=== PATIENT | female | born 1940 | race Caucasian/White ===

== ENCOUNTER 2019-01-14 06:27 | Inpatient (IN) ==
--- NOTE | 2018-12-24 10:57 | Anesthesiology Consultation ---
Date of Service December 24, 2018 Assessment & Plan (1) Encounter for pre-operative examination: Plan: Cardiac clearance 01/05/2019: She is currently stable and asymptomatic from a cardiovascular standpoint with no anginal symptoms occurring greater than 4 ,METS of activity. Her preop EKG showed sinus rhythm is possible anterior infarct. We will therefore obtain an echocardiogram to further evaluate her LV wall motion and systolic function. Pending the results of her echo, patient is at an acceptable risk to proceed with upcoming surgery. ECHO WAS UNREMARKABLE. Chart Review Chart Review: Acceptable Risk for Surgery and Patient seen in Pre Admission Testing Teaching & Discussion Instructed NPO after midnight before surgery, except medications with 15 cc of water. Medication instructions provided according to the PAT guidelines. History Surgery Operation Date: 01/14/19 12:30 Proposed Procedures p Right Total Knee Arthroplasty - Denzel Rosenthal MD Height/Weight Height: 5 ft 5.75 in Weight: 79.7 kg Allergies Allergy/AdvReac Type Severity Reaction Status Date / Time erythromycin base AdvReac Mild stomach Verified 12/20/18 13:42 issues Medications Home Medications Medication Instructions Recorded Confirmed Last Taken Marine Collagen Peptids 1 tab PO QAM 12/20/18 12/20/18 Unknown biotin 10,000 mcg PO QAM 12/20/18 12/20/18 Unknown cholecalciferol (vitamin D3) 2,000 unit PO QAM 12/20/18 12/20/18 Unknown [Vitamin D3] coQ10 (ubiquinol) 200 mg PO QAM 12/20/18 12/20/18 Unknown diclofenac sodium 75 mg PO BID PRN 12/20/18 12/20/18 Unknown diphenhydramine HCl [Allergy] 25 mg PO QAM PRN 12/20/18 12/20/18 Unknown fluticasone 2 spray INTRANASAL QAM 12/20/18 12/20/18 Unknown levothyroxine [Synthroid] 137 mcg PO QAM 12/20/18 12/20/18 Unknown losartan-hydrochlorothiazide 1 tab PO DAILY 12/20/18 12/20/18 Unknown melatonin 2 tab PO HS PRN 12/20/18 12/20/18 Unknown montelukast [Singulair] 10 mg PO QAM 12/20/18 12/20/18 Unknown multivitamin 1 tab PO QAM 12/20/18 12/20/18 Unknown omega 5-xkh-fkb-fish oil [[place]-3] 1 tab PO BID 12/20/18 12/20/18 Unknown potassium chloride 20 meq PO QAM 12/20/18 12/20/18 Unknown vitamin B comp and C no.3 1 cap PO QAM 12/20/18 12/20/18 Unknown fluticasone-salmeterol [Advair 1 inh INHALATION Q12H PRN 12/24/18 12/24/18 Unknown Diskus] Past Medical History Medical History Diabetes diet controlled -- A1C 6.9% Environmental allergies Hypertension Hypothyroid Osteoarthritis Seasonal allergies Past Family History Family History Mother Family history of diabetes mellitus Daughter Family history of diabetes mellitus Grandmother (Maternal) Family history of diabetes mellitus Past Surgical History Surgical History History of back surgery History of left hip replacement Hx of cholecystectomy Hx of total hysterectomy Hx of tubal ligation Past Anesthesia History No Hx of Anesthesia Complications (remote h/o PONV) and No Family Hx of Ane sthesia Complications (daughter PONV) History of PONV Yes (With more remote surgeries--no problems with more recent) Motion Sickness Screening History of Motion Sickness: No Social History Smoking Status: Never smoker Do You Dip or Chew Tobacco: No Hx Alcohol Use: Yes Alcohol type: wine alcohol intake frequency: holidays/special occasions only Hx Substance Use: No Exercise / Class Metabolic Activity II 4-5 Yardwork/Stairs/Walk up hill (Denies CP or SOB with stairs, but slow and limited by knee pain) Review of Systems Pt denies any recent chest pain, shortness of breath, palpitations, cough, fever or URI. Physical Exam Vital Signs BP: 146/81 (pt follows with PCP for HTN) P: 77bpm SPO2: 96% RA T: 97.5 F R: 16 ENMT Mouth: + dentures (full upper), + poor dentition (many teeth "worn down") and + small oral opening Thyromental Distance: < 3.5 Finger Breadths (3) Mallampati Class: II Neck normal visual inspection; neck extension not limited Respiratory normal respiratory effort Auscultation: lungs clear to auscultation bilaterally Cardiovascular Rate/Rhythm: regular rate and regular rhythm Heart Sounds: no murmur Vessels: no carotid bruit Extremities: no edema Testing Electrocardiogram Date: 12/24/18 Findings: + NSR @ (76) Possible anterior infarct, age undetermined. Chest X-Ray Date: 12/24/18 IMPRESSION: No active disease in the chest. Echocardiogram Date: 01/05/19 EF: 60-65% Normal left ventricular size and systolic function. No regional wall motion normalities. Mild concentric LVH. Mild dilated right ventricle with normal systolic function. Sclerotic aortic valve without significant stenosis. Laboratory Results 12/24/18 11:26 12/24/18 11:20 Blood Type B Positive 12/24/18 11:26 Antibody Screen NEGATIVE 12/24/18 11: PT 10.6 Seconds (9.0-12.0) 12/24/18 11:26 INR 1.0 (0.9-1.1) 12/24/18 11: APTT 24.8 Seconds (21.0-31.0) 12/24/18 11:26 Hemoglobin A1c 6.9 % (4.5-5.6) H 12/24/18 11:26
--- NOTE | 2018-12-24 11:00 | PAT Medication Instructions ---
Medication Instructions Date of Service December 24, 2018 Home Medications fluticasone-salmeterol [Advair Diskus] 1 inh INHALATION Q12H PRN Marine Collagen Peptids 1 tab PO QAM biotin 10,000 mcg PO QAM cholecalciferol (vitamin D3) 2,000 unit PO QAM coQ10 (ubiquinol) 200 mg PO QAM diclofenac sodium 75 mg PO BID PRN diphenhydramine HCl [Allergy] 25 mg PO QAM PRN fluticasone 2 spray INTRANASAL QAM levothyroxine [Synthroid] 137 mcg PO QAM losartan-hydrochlorothiazide 1 tab PO DAILY melatonin 2 tab PO HS PRN montelukast [Singulair] 10 mg PO QAM multivitamin 1 tab PO QAM omega 3-xll-swb-fish oil [[place]-3] 1 tab PO BID potassium chloride 20 meq PO QAM vitamin B comp and C no.3 1 cap PO QAM ASK your surgeon for instructions diclofenac sodium 75 mg PO BID PRN STOP taking 2 weeks before surgery Marine Collagen Peptids 1 tab PO QAM coQ10 (ubiquinol) 200 mg PO QAM omega 4-frx-fgz-fish oil [[place]-3] 1 tab PO BID DO NOT take the morning of surgery biotin 10,000 mcg PO QAM cholecalciferol (vitamin D3) 2,000 unit PO QAM diphenhydramine HCl [Allergy] 25 mg PO QAM PRN losartan-hydrochlorothiazide 1 tab PO DAILY montelukast [Singulair] 10 mg PO QAM multivitamin 1 tab PO QAM potassium chloride 20 meq PO QAM vitamin B comp and C no.3 1 cap PO QAM Take morning of surgery With a small sip of water, OTHERWISE NOTHING TO EAT OR DRINK AFTER MIDNIGHT: fluticasone-salmeterol [Advair Diskus] 1 inh INHALATION Q12H PRN (if needed) fluticasone 2 spray INTRANASAL QAM levothyroxine [Synthroid] 137 mcg PO QAM Take evening before surgery fluticasone-salmeterol [Advair Diskus] 1 inh INHALATION Q12H PRN (if needed) melatonin 2 tab PO HS PRN (if needed) Other Notes If you have any questions please call us at [phone] or [phone] or [phone] or [phone]
--- NOTE | 2018-12-24 11:59 | XRay Report ---
XR chest Pre-admission PA/Lat CLINICAL HISTORY: Preoperative chest COMPARISON STUDY: No previous studies for comparison. FINDINGS: The cardiac and mediastinal contours are normal. There is no evidence of focal pulmonary co nsolidation. There is no evidence of failure. No pleural effusions are visualized.[ IMPRESSION: No active disease in the chest. Electronically signed by: Kwaku Ash M.D. 12/24/2018 11:57 AM
[2018-12-24 13:20] LABS: Basophils # (auto) 0.04 K/uL (0-0.2); Basophils % (auto) 0.4 %; Eosinophils # (auto) 0.17 K/uL (0-0.5); Eosinophils % (auto) 1.8 %; Hematocrit (blood only) 40.9 % (37-47); Hemoglobin 13.7 g/dL (12.0-16.0); Immature Granulocytes # (auto) 0.02 K/uL (0.00-0.02); Immature Granulocytes % (auto) 0.2 %; Lymphocytes # (auto) 2.79 K/uL (1.2-3.4); Lymphocytes % (auto) 30.2 %; Mean Corpuscular Hgb Conc 33.5 g/dL (32-36); Mean Corpuscular Volume 92.5 fL (80-100); Mean Platelet Volume 10.7 fL (7.4-10.4); Monocytes # (auto) 0.95 K/uL (0.11-0.59); Monocytes % (auto) 10.3 %; Neutrophils # (auto) 5.28 K/uL (1.4-6.5); Neutrophils % (auto) 57.1 %; Platelet Count 250 K/uL (130-400); RDW Standard Deviation 43.8 fL (36.4-46.3); Red Blood Count 4.42 M/uL (4.2-5.4); White Blood Count 9.25 K/uL (4.8-10.8)
[2018-12-24 13:26] LABS: Estimated Average Glucose 151 mg/dl; Hemoglobin A1C 6.9 % (4.5-5.6)
[2018-12-24 13:32] LABS: Calcium 9.2 mg/dl (8.5-10.1); Creatinine Clr Calc Pharmacy 58.2 ml/min; Est GFR (African American) 77.7; Est GFR (Non-African American) 67.1; Potassium 3.7 mmol/L (3.5-5.1)
[2018-12-24 13:44] LABS: Partial Thromboplastin Ratio 0.9; Partial Thromboplastin Time 24.8 Seconds (21.0-31.0); Prothrombin Time 10.6 Seconds (9.0-12.0)
--- NOTE | 2018-12-27 18:53 | History and Physical Report ---
DATE OF ADMISSION: 01/14/2019 CHIEF COMPLAINT: Bilateral knee pain and discomfort, right side a bit worse than the left. HISTORY OF PRESENT ILLNESS: The patient is a 78-year-old female from [place] who presents for treatment of her knees. She has got a long history of bilateral knee pain and discomfort that has gotten worse, particularly over the past year. Right-side is a little bit more bothersome than the left. She has been through extensive conservative treatment including steroid shots as well as viscosupplementation, which have become less successful over time. She has been through a course of therapy, which did not help at all. She has tried bracing. She actually had PRP injection, which helped just a little bit. She now would like to proceed with definitive treatment. She lives by herself and having more difficulty doing this. She has nighttime pain. She has pain with every step. PAST MEDICAL HISTORY: 1. Significant for diabetes with an A1c of 6.9. 2. Hypothyroidism. 3. Hypertension. 4. Lumbar spondylosis. 5. Obesity with a BMI of 30. PAST SURGICAL HISTORY: 1. Left hip replacement done by Dr. Hollins at [place]. 2. Spine surgery. 3. Hysterectomy. 4. Cholecystectomy. 5. Tubal ligation. ALLERGIES: None. CURRENT MEDICINES: 1. Losartan/hydrochlorothiazide 75/200 in the morning. 2. Synthroid 37 mcg a day. 3. Potassium. 4. Fluticasone nasal spray. 5. Singulair 10 mg. 6. Diclofenac 75 mg twice a day. 7. Vicodin. 8. Coenzyme Q. 9. [place] 3. 10. Vitamin D3. 11. Magnesium. SOCIAL HISTORY: A 78-year-old female. She is . Lives by herself. Five children. Does not smoke. FAMILY HISTORY: Significant for diabetes. REVIEW OF SYSTEMS: Significant for prediabetes/diabetes. Her hemoglobin A1c is 6.9. Denies any current chest pain or shortness of breath. No history of DVT or PE. No known bleeding problems. PHYSICAL EXAMINATION: GENERAL: Physical examination shows a pleasant elderly female. Looks to be in reasonably good health. HEENT: Benign. NECK: Supple. No lymphadenopathy. LUNGS: Clear to auscultation. HEART: Regular rate and rhythm. ABDOMEN: Soft, nontender, nondistended. EXTREMITIES: Grossly neurovascularly intact except as follows: Examination of both knees shows patient walks with a bit of a shuffling waddling gait. Walks with like both knees are a bit stiff. The right knee reveals a bony hypertrophy medially. Range of motion is about 15 degrees show full extension, 110 degrees of flexion. Moderate-sized knee effusion. No pain with hip motion. She is neurologically intact. Examination of left knee reveals varus deformity. Range of motion is 5-125. She is tender over the medial joint line. Small knee effusion. No pain with hip motion. X-RAYS: X-rays of both knees were reviewed. Shows advanced bilateral knee DJD. She has got complete loss of her joint space, particularly in the medial side. She has subchondral sclerosis. She has got osteophytes mostly in the medial compartment, but some lateral and patellofemoral osteophytes as well. ASSESSMENT: A 78-year-old white female with advanced bilateral knee degenerative joint disease. No response to conservative treatment. She would like to proceed with definitive treatment. The right knee has been bothering a little bit longer than the left. PLAN: We will take her to the operating room and do right total knee replacement. The risks and benefits of this procedure were explained to the patient including but not limited to DVT, PE, , infection, neurological injury, vascular injury, bleeding problem, pain, limited range of motion, stiffness, failure to relieve symptoms, incomplete relief of symptoms, need for further surgery in future, fracture, leg length inequality, nerve palsy, etc. The patient understands and desires to proceed. Informed consent was obtained. She does live by herself and she is hoping to go to rehab or long term facility postoperatively. She will need to hold her diclofenac 2 weeks preop. KELSID
[~2019-01-14 06:27] MED LIST: ACETAMINOPHEN 500 MG TAB PO SCH; BUPIVACAINE LIPOSOME/PF 266 MG, BUPIVACAINE/EPINEPHRINE 50 ML, SODIUM CHLORIDE 0.9% 30 ... INFIL SCH; CEFAZOLIN 2000MG 2,000 MG/15 ML SYR IV SCH; FAMOTIDINE 20 MG TAB PO SCH; GABAPENTIN 300 MG PO SCH; LR 500ML BOLUS, THEN 15ML/HR IV SCH; LR 60ML/HR IV SCH; METOCLOPRAMIDE HCL 10 MG TABLET PO SCH
[2019-01-14] MEDS ORDERED: ROPIVACAINE 0.5% 5 MG/ML 30 ML VIAL ONE (06:30)
[2019-01-14] MEDS ORDERED: TRANEXAMIC ACID 1,000 MG **IV Intra-op IV SCH (06:30)
[2019-01-14] MEDS ORDERED: BUPIVACAINE 0.5 % 5 MG/1 ML PF 10ML VIAL ONE (06:30)
[2019-01-14] MEDS ORDERED: EPINEPHrine INJ 1 MG/ML AMP ONE ×2 (06:30→08:36)
--- NOTE | 2019-01-14 06:53 | History & Physical Bridge Note ---
Date of Service January 14, 2019 History & Physical Bridge Note I have examined the patient, reviewed the History & Physical and in the interval since the performance of the History & Physical I have noted the following changes of clinical significance: no changes noted
[2019-01-14] MEDS ORDERED: fentaNYL citrate 100 MCG/2 ML VIAL ONE (07:25)
[2019-01-14] MEDS ORDERED: MIDAZOLAM HCL 1 MG/ML 2ML VIAL ONE ×2 (07:25→08:20)
[2019-01-14] MEDS ORDERED: LIDOCAINE HCL 2% 2 ML VIAL/AMP(20MG/ML) INFIL ONE (07:25)
[2019-01-14] MEDS ORDERED: PROPOFOL IV EMULSION 10 MG/ML 20 ML VIAL IV ONE ×2 (07:25→10:08)
[2019-01-14] MEDS ORDERED: LABETALOL HCL IV 5 MG/ML 20ML IV PRN (08:21)
[2019-01-14] MEDS ORDERED: fentaNYL citrate 100 MCG/2 ML VIAL IV PRN (08:21)
[2019-01-14] MEDS ORDERED: ATROPINE SULFATE 0.1 MG/ML 10ML SYR IV PRN (08:21)
[2019-01-14] MEDS ORDERED: ONDANSETRON INJ 2 MG/ML 2 ML VIAL IV PRN ×2 (08:21→13:15)
[2019-01-14] MEDS ORDERED: ePHEDrine sulfate 50 MG/ML AMP IV PRN (08:21)
[2019-01-14] MEDS ORDERED: PHENYLEPHRINE 100MCG/ML 5ML SYR IV PRN (08:21)
[2019-01-14] MEDS ORDERED: HYDROmorphone INJ 1 MG/ML SYRINGE IV PRN (08:21)
[2019-01-14] MEDS ORDERED: SODIUM CHLORIDE 0.9% PF 50 ML VIAL ONE (08:34)
[2019-01-14] MEDS ORDERED: BACITRACIN INJ 50,000 UNIT VIAL ONE (08:35)
[2019-01-14] MEDS ORDERED: BUPIVACAINE 0.25% 30 ML VIAL ONE (08:35)
[2019-01-14] MEDS ORDERED: BUPIVACAINE LIPOSOME 1.3% 266 MG/20 ML VIAL ONE (08:35)
[2019-01-14] MEDS ORDERED: PHENYLEPHRINE 100MCG/ML 5ML SYR ONE (09:05)
--- NOTE | 2019-01-14 10:27 | Post Operative Brief Note ---
Immediate Post Op Note v1 Date of Surgery January 14, 2019 Pre & Post Diagnosis Operation Date: 01/14/19 08:50 Pre-Op Diagnosis: Right Knee Advanced Degenerative Joint Disease Post-Op Diagnosis: Right Knee Advanced Degenerative Joint Disease Procedure Operation Date: 01/14/19 08:50 Actual Procedures p Right Total Knee Arthroplasty(Right) - Denzel Rosenthal MD Surgeon Denzel Rosenthal MD Underwriting Support Manager Lana, PAC Estimated Blood Loss 50 Findings Consistent with Post-Op Diagnosis Fluids 1300 cc Specimens Right Knee Drains Small Catheter (A 16 Indian small catheter was inserted by NOÉ nKox, without difficulty, clear yellow urine obtained, output to be monitored by Anestheisa.) Anesthesia Type Spinal MAC Complications none Disposition Accompanied Patient To Recovery: No Disposition: Recovery Room
--- NOTE | 2019-01-14 11:42 | XRay Report ---
XR knee RT 2V routine CLINICAL HISTORY: Surgical Post Op COMPARISON: Right knee radiographs December 26, 2018. FINDINGS: Alignment of the right knee arthroplasty is anatomic. There is no fracture or unexpected r adiopaque foreign body. There are skin red. IMPRESSION: Expected findings following total right knee arthroplasty. Electronically signed by: Tank Bowling M.D. 01/14/2019 11:41 AM
--- NOTE | 2019-01-14 12:51 | Anesthesiology Progress Note ---
Date of Service January 14, 2019 Anesthesia Post Procedure Vital Signs Vital Signs: Temp Pulse Pulse Resp BP Pulse Ox 01/14/19 12:35 63 13 137/58 L 99 01/14/19 12:20 59 L 11 L 126/53 L 97 01/14/19 12:10 59 L 11 L 117/76 98 01/14/19 12:00 71 16 131/58 L 98 01/14/19 11:50 73 17 135/63 98 01/14/19 11:40 66 14 135/52 L 97 01/14/19 11:30 69 15 126/57 L 97 01/14/19 11:20 69 13 125/55 L 98 01/14/19 11:10 72 16 132/56 L 97 01/14/19 11:00 76 26 H 130/55 L 97 01/14/19 10:50 76 14 131/65 98 01/14/19 10:40 36.3 C L 70 12 135/55 L 98 01/14/19 10:31 37.1 C 73 17 141/61 H 96 01/14/19 06:35 36.8 C 68 18 167/78 H 96 Pain Intensity Right Knee: Pain Intensity: 0 Notes Mental Status: alert / awake / arousable Patient Amnestic to Procedure: Yes Nausea / Vomiting: adequately controlled Pain: adequately controlled Airway Patency, RR, SpO2: stable & adequate BP & HR: stable & adequate Hydration State: stable & adequate Neuraxial Anesthesia: was administered and sensory block is resolving Anesthetic Complications: no major complications apparent and Pt Satisfied with anesthetic care
[2019-01-14] MEDS ORDERED: MAGNESIUM HYDROXIDE SUSP 30 ML UDC PO PRN (13:15)
[2019-01-14] MEDS ORDERED: FLUTICASONE/SALMETEROL 250/50 (ADVAIR) 14 PUFF/1 INHALER INH PRN (13:15)
[2019-01-14] MEDS ORDERED: NALOXONE HCL 0.4 MG/1 ML VIAL/CARP IV PRN (13:15)
[2019-01-14] MEDS ORDERED: DEXTROSE 50% 50 ML SYRINGE IV PRN (13:15)
[2019-01-14] MEDS ORDERED: ALUMINUM/MAGNESIUM SUSP 30 ML UDC PO PRN (13:15)
[2019-01-14] MEDS ORDERED: GLUCAGON FOR INJ 1 MG VIAL SQ PRN (13:15)
[2019-01-14] MEDS ORDERED: PHARMACY GLYCEMIC MGMT CONSULT STA (13:15)
[2019-01-14] MEDS ORDERED: HYDROmorphone INJ 0.5 MG/0.5 ML SYR IV PRN (13:15)
[2019-01-14] MEDS ORDERED: METOCLOPRAMIDE HCL INJ 5 MG/ML 2 ML VIAL IV PRN (13:15)
[2019-01-14] MEDS ORDERED: NON-FORMULARY MEDICATION (Melatonin 2 TAB) PO PRN (13:15)
[2019-01-14] MEDS ORDERED: BISACODYL 10 MG SUPP PR PRN (13:15)
[2019-01-14] MEDS ORDERED: GLUCOSE 10 TABS/TUBE PO PRN (13:15)
[2019-01-14] MEDS ORDERED: GLUCOSE 40% GEL 15 GM TUBE PO PRN (13:15)
[2019-01-14] MEDS ORDERED: CARBOHYDRATES FOR HYPOGLYCEMIA PO PRN (13:15)
--- NOTE | 2019-01-14 13:49 | Operative Report ---
DATE OF OPERATION: 01/14/2019 SURGEON: Denzel Rosenthal MD BROOMCORN SEEDER: NOÉ Smith PREOPERATIVE DIAGNOSIS: Right knee degenerative joint disease. POSTOPERATIVE DIAGNOSIS: Right knee degenerative joint disease. PROCEDURE PERFORMED: Right cemented posterior stabilized total knee arthroplasty. COMPLICATIONS: None. ESTIMATED BLOOD LOSS: 50 mL. FLUID REPLACEMENT: 1300 mL crystalloid fluid replacement. TOURNIQUET TIME: 56 minutes at 300 mmHg. ANESTHESIA: Spinal with adductor canal block. DRAINS: None. SPECIMENS: Right knee sent for pathology. OPERATIVE INDICATIONS: The patient is a 78-year-old fairly active, independent female who has had a long history of bilateral knee pain and discomfort, right side a bit worse than the left. She has been through extensive conservative treatment, which just became less successful over time. She had significant flexion contracture of her both knees. She would like to proceed with right total knee arthroplasty. OPERATIVE FINDINGS: Operative findings revealed extensive right knee DJD with grade 4 changes in all 3 compartments, most severe in the medial and patellofemoral compartments. She had a moderate size joint effusion. She had a 15-20 degree flexion contracture. She had a significant chondrocalcinosis throughout. OPERATIVE IMPLANTS: Operative implants consisted of: 1. A Biomet Vanguard size 65 right posterior stabilized femoral component. 2. A Biomet size 67 tibial tray. 3. A 10 mm posterior stabilized polyethylene insert. 4. A 31 x 8 all poly patella. OPERATIVE PROCEDURE: The patient was taken to the operating room, identified and placed on the operating table in supine position. All contact areas were appropriately padded. IV antibiotics were provided by the anesthesia team. A spinal anesthetic and adductor canal block had been provided in the holding area. Clayton catheter was placed in sterile fashion. Right thigh tourniquet was then placed and the right lower extremity was then prepped and draped in usual sterile fashion. The right leg was elevated and exsanguinated with Esmarch and tourniquet was placed at 300 mmHg. An anterior approach of the right knee was then performed through a longitudinal incision centered over the patella. Sharp dissection was carried through the subcutaneous tissue down to the level of the extensor mechanism. A medial parapatellar arthrotomy incision was made. Some subperiosteal dissection was carried out medially. The fat pad resected from beneath the patellar tendon. The lateral patellofemoral ligament was released. The patella was everted and knee was flexed. The osteophytes were taken off the distal femur. The ACL and PCL were then released from the distal femur and the tibia subluxated anteriorly. I did pretty extensive posterior medial release due to the flexion contracture. The external tibial alignment jig was then placed in the anterior face of the tibia and adjusted 14 mm medially. Proximal tibial cut was made to remove about 2 mm of bone from the most deficient aspect of the medial tibial plateau. Some osteophytes were taken off medial and posteromedially. Tibia was sized to a size 67. Attention was then drawn to the femur. The distal femur was entered with a sharp drill bit. Intramedullary canal was suctioned. A right 5-degree valgus cutting guide was placed. Distal femoral cutting block was pinned in place. Distal femoral cut was made to take an additional 3 mm of bone off distal femur. The femur was then sized to a size 65. The AP cutting block was pinned parallel to the epicondylar axis, which was 3 degrees of external rotation. The anterior cut, anterior chamfer, posterior cut, posterior chamfer cuts were made. Box cutting guide was placed and adjusted slightly lateral and the box cut was made. The knee was flexed. The remnants of the medial and lateral menisci were excised. The osteophytes were taken off the posterior aspect of the femur. A trial femoral component was placed. Tibial tray was pinned in maximum external rotation, and drill and stem punch were used to create defect in the proximal tibia for the tibial tray. The knee was then trialed and the 10 mm insert fit most appropriately. Attention was then drawn to the patella. The patella was cleaned of all soft tissues. Patella thickness measured 21 mm in thickness, it was cut down to 13. It was sized to a size 31 patella. Lug holes were drilled for 31 patella. Lateral osteophyte was removed. Patella button was placed. Knee was taken through range of motion and patella tracked nicely with no thumbs test. Attention was then drawn toward placing the permanent components. All trial components were removed. A bone plug was placed in the distal femur to limit blood loss. A double batch of Palacos G cement was mixed. A Biomet Vanguard size 65 right posterior stabilized femoral component, size 67 tibial tray, a 10 mm posterior stabilized polyethylene insert, and a 31 x 8 all poly patella were then cemented in place. Knee was brought down to full extension until cement hardened. A final cement check was then performed. Pericapsular tissues were injected with a total of 100 mL of a combination of 20 mL Exparel, 30 mL of normal saline, 50 mL of 0.25% Marcaine with epinephrine. The patient did receive 1 gram of tranexamic acid. The tourniquet was then let down for final tourniquet time of 56 minutes. Hemostasis was assured with use of electrocautery. The extensor mechanism was then closed with combination of #1 PDS suture and #1 Vicryl suture in [id number] fashion. Extensor mechanism was checked and found to be intact. Subcutaneous tissues were then closed with 2 Dexon suture in a buried interrupted fashion. Skin was closed with skin red. Leg was then cleaned, dried and a sterile dressing of Xeroform, 4 x 4's, sterile cast padding and Zhen bandage were applied. The patient then transferred to the recovery room in stable condition. The patient tolerated the procedure well with no complications. All needle and sponge counts were correct at the end of the operation. I attest to the content of the Intraoperative Record and any orders documented therein. Any exception s are noted below.
[2019-01-14] MEDS ORDERED: PHARMACY GLYCEMIC MGMT CONSULT PRN (14:30)
[2019-01-14] MEDS: SODIUM CHLORIDE 0.9% 1000ML 1,000 ML IV SCH ×2 (14:58→22:51)
[2019-01-14] MEDS: TRAMADOL HCL 50 MG TABLET PO PRN ×2 (15:01→21:18)
--- NOTE | 2019-01-14 15:32 | Progress Note ---
DATE: 01/14/2019 SUBJECTIVE: A 78-year-old white female postop from a right knee replacement. She is doing pretty well. Just starting to get some pain in her knee. No chest pain or shortness of breath. Not feeling dizzy or lightheaded. OBJECTIVE: VITAL SIGNS: Temperature 36.4. Vital signs stable. GENERAL: Physical examination reveals a pleasant elderly female. She is sitting up in her bed, reading and looks pretty comfortable. LUNGS: Clear to auscultation. HEART: Regular rate and rhythm. ABDOMEN: Soft, nontender, nondistended. EXTREMITIES: Grossly neurovascularly intact except as follows: Examination of the right leg reveals the leg to be well aligned. Dressing is clean, dry and intact. She can dorsiflex and plantarflex her foot appropriately. She is neurologically intact. X-RAYS: X-rays of the right knee from recovery room were reviewed. It shows a right cemented posterior stabilized total knee arthroplasty. Components looked to be in good position. No signs of problems. ASSESSMENT: A 78-year-old white female postop from a right knee replacement, doing well. Pain is controlled. She is neurologically intact. PLAN: 1. DVT prophylaxis including thigh-high TEDs, SCDs, and aspirin twice a day. 2. PT/OT. Weight bear as tolerated. Right total knee protocol. 3. Pain control, doing pretty well with current pain regimen. 4. IV antibiotics x24 hours. 5. Disposition: She is hoping to be discharged to a rehab or senior care facility as she lives by herself and she will need some assistance for a while. We will get manager social responsibility working on this in the morning.
[2019-01-14] MEDS: ACETAMINOPHEN 500 MG TAB PO SCH ×2 (15:33→21:18)
[2019-01-14] MEDS: KETOROLAC TROMETHAMINE 15 MG/ML VIAL IV SCH ×2 (15:37→21:17)
--- NOTE | 2019-01-14 15:37 | Pharmacy Report ---
Glycemic Control Consultation - Date of Service January 14, 2019 - Scope Scope: Glycemic Pharmacist consulted by Dr [] on [date] for glycemic control and to write orders per [facility] inpatient glycemic control protocol - Objective Weight: 80.6 kg Accuchecks BSG (last 24hrs): 01/14/19 01/14/19 01/14/19 06:54 10:35 13:06 POC Glucose 152 H 151 H 151 H HbA1c: Hemoglobin A1c 6.9 % (4.5-5.6) H 12/24/18 11:26 - Recent Pertinent Medications Outpatient Anti-diabetic Regimen: * N/A Risk Factors for Insulin Resistance: * Recent Surgery * Diet - Assessment & Plan Assessment & Plan: ASSESSMENT: * 78yo female with A1c diagnostic for diabetes (A1c > 6.5%) s/p R total knee replacement * Pt does not take any medications to control her blood sugar as an outpatient (diet controlled?) * Will initiate weight based, low dose SQ basal bolus insulin regimen for post-op hyperglycemia and titrate based on BSG trends * Goal is to maintain BSG <200 mg/dl (ideally <150 mg/dl) to prevent post-op infectious complications PLAN FOR INPATIENT GLYCEMIC CONTROL: * Basal insulin * Lantus 15 units (0.2 units/kg) SQ Q24hrs * Bolus insulin * NovoLog per scale ACHS or Q6hrs while NPO * Goal Range: Low 110 mg/dL - High 140 mg/dL * Correction Factor: 40 mg/dL/unit * Nutritional / Prandial insulin per carb ratio of 1 unit per 13 grams CHO consumed * Please note that the plan above was derived based on current level of insulin resistance and hospital stress. These recommendations are appropriate for inpatient admission only. Plan of care upon discharge will need to be reassessed to avoid potential outpatient hypo/hyperglycemia. Thank you.
[2019-01-14] MEDS ORDERED: TRANEXAMIC ACID 1,000 MG in 0.9 % SODIUM CHLORIDE 100 ML IV SCH (16:30)
[2019-01-14] MEDS: INSULIN GLARGINE SOLOSTAR 100 UNITS/ML 3 ML PEN SC SCH (17:02)
[2019-01-14] MEDS: CEFAZOLIN 2000MG 2,000 MG/15 ML SYR IV SCH (18:54)
[2019-01-14] MEDS: FERROUS GLUCONATE 324 MG TAB PO SCH (18:55)
[2019-01-14] MEDS: INSULIN ASPART 100 UNITS/ML 3 ML PEN SC SCH ×2 (18:55→21:24)
[2019-01-14] MEDS: ASCORBIC ACID 500 MG TAB PO SCH (18:55)
[2019-01-14] MEDS: DOCUSATE SODIUM 100 MG CAP PO SCH (21:15)
[2019-01-14] MEDS: OMEGA-3 (PURIFIED FISH OIL) 1 GM CAP PO SCH (21:16)
[2019-01-14] MEDS: ASPIRIN 81 MG ECTAB PO SCH (21:16)
[2019-01-14] MEDS: SENNA 8.6 MG TAB PO SCH (21:16)
[2019-01-15] MEDS: CEFAZOLIN 2000MG 2,000 MG/15 ML SYR IV SCH (01:08)
[2019-01-15] MEDS: KETOROLAC TROMETHAMINE 15 MG/ML VIAL IV SCH ×4 (04:11→21:21)
[2019-01-15] MEDS: TRAMADOL HCL 50 MG TABLET PO PRN ×5 (04:12→23:27)
[2019-01-15] MEDS: ACETAMINOPHEN 500 MG TAB PO SCH ×3 (06:03→21:21)
[2019-01-15] MEDS: LEVOTHYROXINE SODIUM 137 MCG TABLET PO SCH (06:03)
[2019-01-15 06:34] LABS: Hematocrit (blood only) 32.5 % (37-47); Hemoglobin 10.9 g/dL (12.0-16.0); Mean Corpuscular Hgb Conc 33.5 g/dL (32-36); Mean Corpuscular Volume 91.3 fL (80-100); Mean Platelet Volume 10.1 fL (7.4-10.4); Platelet Count 168 K/uL (130-400); RDW Coefficient of Variation 13.1 % (11.5-14.5); RDW Standard Deviation 43.6 fL (36.4-46.3); Red Blood Count 3.56 M/uL (4.2-5.4); White Blood Count 6.72 K/uL (4.8-10.8)
[2019-01-15 06:56] LABS: BUN Creatinine Ratio 15.2 (10-20); Calcium 7.9 mg/dl (8.5-10.1); Creatinine Clr Calc Pharmacy 48.3 ml/min; Potassium 3.1 mmol/L (3.5-5.1)
[2019-01-15] MEDS ORDERED: POTASSIUM CHLORIDE 10 MEQ TABCR PO ONE ×2 (07:23→18:24)
--- NOTE | 2019-01-15 08:26 | Progress Note ---
DATE: 01/15/2019 SUBJECTIVE: A 78-year-old white female postop day 1 from a right knee replacement. She is doing pretty well. Did not have a real great night sleep, but the pain has been reasonably well controlled and responded to the pain medicine. No chest pain or shortness of breath. Not feeling dizzy or lightheaded. OBJECTIVE: VITAL SIGNS: Temperature 36.6. Vital signs stable. GENERAL: Physical examination reveals a pleasant elderly female. I awake her this morning. EXTREMITIES: Examination of the right leg reveals the leg to be well aligned. Dressing is clean, dry and intact. She can dorsiflex and plantarflex her foot appropriately. She is neurologically intact. LABORATORY DATA: Hemoglobin is 10.9. Hematocrit 32.5. Electrolytes reveal a potassium of 3.1. ASSESSMENT: A 78-year-old white female postop day 1 from right knee replacement, doing pretty well. Pain has been reasonably well controlled. She is hypokalemic and we will supplement her potassium. PLAN: 1. DVT prophylaxis including thigh-high TEDs, SCDs, and aspirin twice a day. 2. PT/OT. Weight bear as tolerated. Right total knee protocol. 3. Pain control, doing pretty well with current pain regimen. 4. Hypokalemia. We will supplement her potassium today. 5. Anemia. Currently asymptomatic. Continue iron supplementation. 6. Disposition: She is hoping to be discharged to rehab or prison facility as she lives by herself and she will need some assistance for a while.
[2019-01-15] MEDS ORDERED: MULTIVITAMIN TAB PO SCH (09:00)
[2019-01-15] MEDS ORDERED: NON-FORMULARY MEDICATION (Coq10 (Ubiquinol) 200 MG) PO SCH (09:00)
[2019-01-15] MEDS ORDERED: NON-FORMULARY MEDICATION (Biotin 10,000 MCG) PO SCH (09:00)
[2019-01-15] MEDS ORDERED: [UNRECOGNIZED DRUG - REMARK] PO SCH (09:00)
[2019-01-15] MEDS: ASCORBIC ACID 500 MG TAB PO SCH ×2 (09:05→18:11)
[2019-01-15] MEDS: OMEGA-3 (PURIFIED FISH OIL) 1 GM CAP PO SCH ×2 (09:05→21:21)
[2019-01-15] MEDS: DOCUSATE SODIUM 100 MG CAP PO SCH ×2 (09:05→21:21)
[2019-01-15] MEDS: VITAMIN B COMPLEX TAB PO SCH (09:05)
[2019-01-15] MEDS: FERROUS GLUCONATE 324 MG TAB PO SCH ×2 (09:05→18:11)
[2019-01-15] MEDS: MULTIVITAMIN TAB PO SCH (09:05)
[2019-01-15] MEDS: MONTELUKAST SODIUM 10 MG TABLET PO SCH (09:05)
[2019-01-15] MEDS: LOSARTAN/HCTZ 50/12.5MG TAB PO SCH (09:06)
[2019-01-15] MEDS: ASPIRIN 81 MG ECTAB PO SCH ×2 (09:06→21:21)
[2019-01-15] MEDS: CHOLECALCIFEROL 1,000 UNITS TAB PO SCH (09:06)
[2019-01-15] MEDS: POTASSIUM CHLORIDE 20 MEQ TABCR PO SCH (09:06)
[2019-01-15] MEDS: FLUTICASONE PROPIONATE NA SPR 16 GM BTL NAE SCH (09:06)
[2019-01-15] MEDS: INSULIN ASPART 100 UNITS/ML 3 ML PEN SC SCH ×4 (09:11→21:31)
--- NOTE | 2019-01-15 11:00 | Anesthesiology Progress Note ---
Date of Service January 15, 2019 Anesthesia Post Procedure Vital Signs Vital Signs: Temp Pulse Pulse Pulse Resp BP Pulse Ox 01/15/19 08:24 36.7 C 62 16 134/74 96 01/15/19 03:24 36.6 C 63 16 134/50 L 93 01/14/19 22:49 36.7 C 58 L 16 159/70 H 96 01/14/19 19:24 36.5 C 62 18 183/69 H 94 01/14/19 16:00 36.4 C L 56 L 18 183/77 H 96 01/14/19 15:10 36.4 C L 62 18 154/73 H 96 01/14/19 14:06 36.4 C L 61 18 145/70 H 96 01/14/19 13:30 36.7 C 61 14 135/69 98 01/14/19 13:00 36.7 C 62 16 121/56 L 98 01/14/19 12:45 36.6 C 58 L 14 126/56 L 97 01/14/19 12:35 63 13 137/58 L 99 01/14/19 12:20 59 L 11 L 126/53 L 97 01/14/19 12:10 59 L 11 L 117/76 98 01/14/19 12:00 71 16 131/58 L 98 01/14/19 11:50 73 17 135/63 98 01/14/19 11:40 66 14 135/52 L 97 01/14/19 11:30 69 15 126/57 L 97 01/14/19 11:20 69 13 125/55 L 98 01/14/19 11:10 72 16 132/56 L 97 Pain Intensity Right Knee: Pain Intensity: 3 Notes Mental Status: alert / awake / arousable Nausea / Vomiting: adequately controlled Pain: adequately controlled Airway Patency, RR, SpO2: stable & adequate BP & HR: stable & adequate Hydration State: stable & adequate Neuraxial Anesthesia: was administered and sensory block resolved Anesthetic Complications: no major complications apparent and Pt Satisfied with anesthetic care
[2019-01-15] MEDS: INSULIN GLARGINE SOLOSTAR 100 UNITS/ML 3 ML PEN SC SCH (17:15)
[2019-01-15] MEDS: SENNA 8.6 MG TAB PO SCH (21:21)
[2019-01-16] MEDS: KETOROLAC TROMETHAMINE 15 MG/ML VIAL IV SCH ×2 (03:37→10:53)
[2019-01-16] MEDS: LEVOTHYROXINE SODIUM 137 MCG TABLET PO SCH (06:01)
[2019-01-16] MEDS: ACETAMINOPHEN 500 MG TAB PO SCH ×3 (06:02→21:47)
[2019-01-16] MEDS: TRAMADOL HCL 50 MG TABLET PO PRN ×3 (06:04→20:40)
[2019-01-16] MEDS: DOCUSATE SODIUM 100 MG CAP PO SCH ×2 (07:54→20:41)
[2019-01-16] MEDS: CHOLECALCIFEROL 1,000 UNITS TAB PO SCH (07:54)
[2019-01-16] MEDS: LOSARTAN/HCTZ 50/12.5MG TAB PO SCH (07:55)
[2019-01-16] MEDS: OMEGA-3 (PURIFIED FISH OIL) 1 GM CAP PO SCH ×2 (07:55→20:39)
[2019-01-16] MEDS: ASPIRIN 81 MG ECTAB PO SCH ×2 (07:55→20:40)
[2019-01-16] MEDS: VITAMIN B COMPLEX TAB PO SCH (07:55)
[2019-01-16] MEDS: POTASSIUM CHLORIDE 20 MEQ TABCR PO SCH (07:55)
[2019-01-16] MEDS: ASCORBIC ACID 500 MG TAB PO SCH ×2 (07:56→18:10)
[2019-01-16] MEDS: MONTELUKAST SODIUM 10 MG TABLET PO SCH (07:56)
[2019-01-16] MEDS: FLUTICASONE PROPIONATE NA SPR 16 GM BTL NAE SCH (07:56)
[2019-01-16] MEDS: FERROUS GLUCONATE 324 MG TAB PO SCH ×2 (07:56→18:10)
[2019-01-16] MEDS: INSULIN ASPART 100 UNITS/ML 3 ML PEN SC SCH ×4 (07:56→20:42)
[2019-01-16] MEDS: MULTIVITAMIN TAB PO SCH (07:56)
--- NOTE | 2019-01-16 08:42 | Progress Note ---
DATE: 01/16/2019 SUBJECTIVE: A 78-year-old white female postop day 2 from right knee replacement. She is doing well. Says her knee just feels pretty sore. No chest pain or shortness of breath. Not feeling dizzy or lightheaded. OBJECTIVE: VITAL SIGNS: Temperature 36.5. Vital signs stable. GENERAL: Physical examination reveals a pleasant elderly female. She is sitting up at her bedside, eating her breakfast and looks comfortable. EXTREMITIES: Examination of the right leg reveals the dressing to be clean, dry and intact. She can dorsiflex and plantarflex her foot appropriately. She is neurologically intact. LABORATORY DATA: Potassium improved at 3.6 and now normal. ASSESSMENT: A 78-year-old white female postop day 2 from right knee replacement, doing well. Pain is reasonably well controlled. Her potassium is improved. PLAN: 1. DVT prophylaxis including thigh-high TEDs, SCDs, and aspirin twice a day. 2. PT/OT. Weight bear as tolerated. Right total knee protocol. 3. Pain control, doing pretty well with current pain regimen. 4. Disposition: She is hoping to be discharged to rehab. I believe they are looking in the [facility] facility. She needs a 3-day hospital stay and hopefully they get her there on Thursday.
--- NOTE | 2019-01-16 14:18 | Pharmacy Report ---
Pharmacy Glycemic Short Note 2 - Date of Service January 16, 2019 - Glycemic Short BSG Results (Last 24 hours): 01/15/19 01/15/19 01/16/19 17:10 20:33 06:11 POC Glucose 133 H 95 130 H 01/16/19 12:02 POC Glucose 109 H OUTPATIENT ANTIDIABETIC REGIMEN: * Nil ASSESSMENT: * All BSGs have been euglycemic thus far. Will continue with current insulin orders PLAN FOR INPATIENT GLYCEMIC CONTROL: * Hold outpatient oral diabetes medications * Basal insulin * Lantus 10 units daily * Bolus insulin * NovoLog per scale ACHS or Q6hrs while NPO * Goal Range: Low 110 mg/dL - High 140 mg/dL * Correction Factor: 40 mg/dL/unit * Nutritional / Prandial insulin per carb ratio of 1 unit per 13 grams CHO consumed
[2019-01-16] MEDS ORDERED: INSULIN GLARGINE SOLOSTAR 100 UNITS/ML 3 ML PEN SC SCH (16:00)
[2019-01-16] MEDS: SENNA 8.6 MG TAB PO SCH (20:41)
[2019-01-17] MEDS: TRAMADOL HCL 50 MG TABLET PO PRN ×3 (02:41→14:44)
[2019-01-17] MEDS: ACETAMINOPHEN 500 MG TAB PO SCH ×2 (05:54→13:52)
[2019-01-17] MEDS: LEVOTHYROXINE SODIUM 137 MCG TABLET PO SCH (05:54)
--- NOTE | 2019-01-17 07:56 | Progress Note ---
DATE: 01/17/2019 SUBJECTIVE: A 78-year-old white female postop day 3 from a right knee replacement. She is doing okay. Had a little bit of more pain yesterday, likely related to the Exparel wearing off and the decreased Toradol. No chest pain or shortness of breath. Not feeling dizzy or lightheaded. OBJECTIVE: VITAL SIGNS: Temperature 36.8. Vital signs stable. GENERAL: Physical examination reveals a pleasant elderly female. She is lying in bed, looks reasonably comfortable. EXTREMITIES: Examination of the right leg reveals the leg to be well aligned. Dressing is clean, dry and intact. She can dorsiflex and plantarflex her foot appropriately. She is neurologically intact. ASSESSMENT: A 78-year-old white female postop day 3 from right knee replacement. Having a little bit more pain likely related to the decreased Toradol as well as the Exparel wearing off. PLAN: 1. DVT prophylaxis including thigh-high TEDs, SCDs, and aspirin twice a day. 2. PT/OT. Weight bear as tolerated. Right total knee protocol. 3. Pain control, doing pretty well with current pain regimen. We will likely add Toradol back into the regimen while in the hospital. 4. Disposition: She is hoping to be discharged to rehab. We are hoping to hear about that today.
[2019-01-17] MEDS: INSULIN ASPART 100 UNITS/ML 3 ML PEN SC SCH ×2 (08:00→13:50)
[2019-01-17] MEDS: VITAMIN B COMPLEX TAB PO SCH (08:01)
[2019-01-17] MEDS: MONTELUKAST SODIUM 10 MG TABLET PO SCH (08:01)
[2019-01-17] MEDS: POTASSIUM CHLORIDE 20 MEQ TABCR PO SCH (08:01)
[2019-01-17] MEDS: LOSARTAN/HCTZ 50/12.5MG TAB PO SCH (08:01)
[2019-01-17] MEDS: CHOLECALCIFEROL 1,000 UNITS TAB PO SCH (08:01)
[2019-01-17] MEDS: ASPIRIN 81 MG ECTAB PO SCH (08:02)
[2019-01-17] MEDS: FERROUS GLUCONATE 324 MG TAB PO SCH (08:02)
[2019-01-17] MEDS: DOCUSATE SODIUM 100 MG CAP PO SCH (08:02)
[2019-01-17] MEDS: OMEGA-3 (PURIFIED FISH OIL) 1 GM CAP PO SCH (08:02)
[2019-01-17] MEDS: MULTIVITAMIN TAB PO SCH (08:02)
[2019-01-17] MEDS: FLUTICASONE PROPIONATE NA SPR 16 GM BTL NAE SCH (08:06)
[2019-01-17] MEDS: KETOROLAC TROMETHAMINE 15 MG/ML VIAL IV SCH ×2 (08:10→14:35)
[2019-01-17] MEDS: ASCORBIC ACID 500 MG TAB PO SCH (08:19)
--- NOTE | 2019-01-18 06:41 | Discharge Summary ---
Date of Service January 19, 2019 Discharge Data Consultations 01/14/19 13:15 Consult Case Management - Discharge Planning Routine Procedures Performed Operation Date: 01/14/19 08:50 Actual Procedures p Right Total Knee Arthroplasty(Right) - Denzel Rosenthal MD
--- NOTE | 2019-01-18 16:07 | Discharge Summary ---
ADMITTING PHYSICIAN AND SURGEON: Dr. Denzel Rosenthal. ADMITTING DIAGNOSIS: Right knee degenerative joint disease. SURGERY PERFORMED: Right total knee arthroplasty. SECONDARY DIAGNOSES: Diabetes, hypothyroidism, hypertension, lumbar spondylosis, obesity. CONSULTS: None obtained. HISTORY AND PHYSICAL EXAMINATION: Well documented in patient's chart. HOSPITAL COURSE: The patient was admitted on 01/14/2019 underwent total knee arthroplasty, tolerated the procedure well. There were no complications. She was transferred to the PACU postoperatively and later to the orthopedic floor for further care. She was given Ancef for antibiotic prophylaxis, CHUCKY stockings, SCDs and aspirin for DVT prophylaxis. Hemoglobin, hematocrit and vital signs were monitored during her hospital stay and remained stable. She developed some postoperative anemia with hemoglobin down to 10.9, did not require any blood transfusions. She had some hypokalemia during hospital stay which was supplemented as well. There were no complications. By postoperative day 3 she was tolerating a diabetic diet. Pain was controlled with oral pain medicine. She was participating in physical therapy. Postop day 3, [facility] She was given printed discharge instructions including new prescriptions for extra strength Tylenol, aspirin, iron supplement and tramadol. Continue home medicines. Continue physical therapy, weightbearing as tolerated, CHUCKY stockings. Follow up approximately 2 weeks postoperatively or sooner if there are any problems or concerns.
== END 2019-01-17 14:46 | DRG 470 ==
LOC: ASU 06:27 → 3E 10:33

== ENCOUNTER 2019-11-04 06:22 | Inpatient (IN) ==
--- NOTE | 2019-10-03 15:39 | PAT Medication Instructions ---
Medication Instructions Date of Service October 03, 2019 Home Medications Marine Collagen Peptids 1 dose PO QAM [place]-3 1 tab PO BID cholecalciferol (vitamin D3) [Vitamin D3] 2,000 unit PO QAM coQ10 (ubiquinol) 200 mg PO BID diclofenac sodium 75 mg PO BID PRN diphenhydramine HCl [Allergy] 25 mg PO UD PRN fluticasone propionate 2 spray INTRANASAL QAM levothyroxine [Synthroid] 137 mcg PO QAM melatonin 2 tab PO HS PRN montelukast [Singulair] 10 mg PO QAM multivitamin 1 tab PO QAM vitamin B comp and C no.3 1 cap PO QAM fluticasone propion-salmeterol [Advair Diskus] 1 inh INHALATION Q12H PRN Margret Tea 1 dose DAILY cetirizine [Allergy Relief (cetirizine)] 10 mg PO DAILY furosemide 20 mg PO UD PRN hydrochlorothiazide 25 mg PO QAM losartan 100 mg PO QAM potassium chloride [Klor-Con M20] 20 meq PO QAM ASK your surgeon for instructions diclofenac sodium 75 mg PO BID PRN STOP taking 2 weeks before surgery (or as soon as possible if surgery is within 2 weeks) Marine Collagen Peptids 1 dose PO QAM [place]-3 1 tab PO BID coQ10 (ubiquinol) 200 mg PO BID Margret Tea 1 dose DAILY DO NOT take the morning of surgery cholecalciferol (vitamin D3) [Vitamin D3] 2,000 unit PO QAM diphenhydramine HCl [Allergy] 25 mg PO UD PRN montelukast [Singulair] 10 mg PO QAM multivitamin 1 tab PO QAM vitamin B comp and C no.3 1 cap PO QAM cetirizine [Allergy Relief (cetirizine)] 10 mg PO DAILY furosemide 20 mg PO UD PRN hydrochlorothiazide 25 mg PO QAM losartan 100 mg PO QAM potassium chloride [Klor-Con M20] 20 meq PO QAM Take morning of surgery With a small sip of water, OTHERWISE NOTHING TO EAT OR DRINK AFTER MIDNIGHT: fluticasone propionate 2 spray INTRANASAL QAM levothyroxine [Synthroid] 137 mcg PO QAM fluticasone propion-salmeterol [Advair Diskus] 1 inh INHALATION Q12H PRN (if needed) Take evening before surgery diphenhydramine HCl [Allergy] 25 mg PO UD PRN (if needed) melatonin 2 tab PO HS PRN (if needed) fluticasone propion-salmeterol [Advair Diskus] 1 inh INHALATION Q12H PRN (if needed) furosemide 20 mg PO UD PRN (if needed) Other Notes If you have any questions please call us at [phone] or [phone] or [phone] or [phone]
--- NOTE | 2019-10-04 10:51 | Anesthesiology Consultation ---
Date of Service October 04, 2019 Assessment & Plan (1) Encounter for pre-operative examination: CHECK BSG AM DOS Chart Review Chart Review: Acceptable Risk for Surgery and Patient seen in Pre Admission Testing Teaching & Discussion Instructed NPO after midnight before surgery, except medications with 15 cc of water. Medication instructions provided according to the PAT guidelines. History Surgery Operation Date: 11/04/19 07:00 Proposed Procedures p Left Total Knee Replacement - Denzel Rosenthal MD Height/Weight Height: 5 ft 3 in Weight: 81.5 kg Allergies Allergy/AdvReac Type Severity Reaction Status Date / Time erythromycin base AdvReac Unknown stomach Verified 09/22/19 08:51 issues Medications Home Medications Medication Instructions Recorded Confirmed Last Taken Marine Collagen Peptids 1 dose PO QAM 12/20/18 09/22/19 12/24/18 08:00 [place]-3 1 tab PO BID 12/20/18 09/22/19 12/31/18 08:00 cholecalciferol (vitamin D3) 2,000 unit PO QAM 12/20/18 09/22/19 12/31/18 08:00 [Vitamin D3] coQ10 (ubiquinol) 200 mg PO BID 12/20/18 09/22/19 12/31/18 08:00 diclofenac sodium 75 mg PO BID PRN 12/20/18 09/22/19 Unknown diphenhydramine HCl [Allergy] 25 mg PO UD PRN 12/20/18 09/22/19 01/13/19 09:00 fluticasone propionate 2 spray INTRANASAL QAM 12/20/18 09/22/19 01/14/19 04:00 levothyroxine [Synthroid] 137 mcg PO QAM 12/20/18 09/22/19 09/22/19 melatonin 2 tab PO HS PRN 12/20/18 09/22/19 01/12/19 21:00 montelukast [Singulair] 10 mg PO QAM 12/20/18 09/22/19 01/13/19 09:00 multivitamin 1 tab PO QAM 12/20/18 09/22/19 12/31/18 08:00 vitamin B comp and C no.3 1 cap PO QAM 12/20/18 09/22/19 01/06/19 08:00 fluticasone propion-salmeterol 1 inh INHALATION Q12H PRN 12/24/18 09/22/19 Unknown [Advair Diskus] Margret Tea 1 dose DAILY 09/22/19 09/22/19 Unknown cetirizine [Allergy Relief 10 mg PO DAILY 09/22/19 09/22/19 Unknown (cetirizine)] furosemide 20 mg PO UD PRN 09/22/19 09/22/19 Unknown hydrochlorothiazide 25 mg PO QAM 09/22/19 09/22/19 Unknown losartan 100 mg PO QAM 09/22/19 09/22/19 Unknown potassium chloride [Klor-Con M20] 20 meq PO QAM 09/22/19 09/22/19 Unknown Past Medical History Medical History (Updated 10/05/19 @ 14:57 by Louis Venegas) Diabetes diet controlled -- A1C 6.9% Environmental allergies Family history of reaction to anesthesia DAUGHTER - VIOLENTLY SICK AFTER History of abnormal electrocardiogram possible anterior infarct noted on pre op EKG 12/2018. Subsequent echo WNL. History of spinal stenosis NUMBNESS LEFT FOOT REMAINS Hypertension Hypothyroid Nausea and vomiting after administration of anesthetic agent HX OF IN THE 1970'S / S Osteoarthritis Seasonal allergies Past Family History Family History Mother Family history of diabetes mellitus Daughter Family history of diabetes mellitus Grandmother (Maternal) Family history of diabetes mellitus Past Surgical History Surgical History History of back surgery History of left hip replacement History of total right knee replacement Hx of cholecystectomy Hx of total hysterectomy Hx of tubal ligation Past Anesthesia History No Hx of Anesthesia Complications (other than remote h/o PONV) and No Family Hx of Anesthesia Complications (other than daughter PONV) History of PONV No Hx of Motion Sickness and History of PONV Social History Smoking Status: Never smoker Do You Dip or Chew Tobacco: No Hx Alcohol Use: Yes Alcohol type: wine alcohol intake frequency: holidays/special occasions only Hx Substance Use: No substance use type: does not use Review of Systems Pt denies any recent chest pain, shortness of breath, palpitations, cough, fever or URI. Physical Exam Vital Signs BP: 143/80 (pt follows with PCP for HTN) P: 71bpm SPO2: 98% RA T: 98.2 F R: 16 ENMT Mouth: + dental restorations (full upper) and + chipped teeth (bottom R cuspid); no loose teeth Thyromental Distance: > or= 3.5 Finger Breadths (3.5) Mallampati Class: II Neck normal visual inspection; neck extension not limited Respiratory normal respiratory effort Auscultation: lungs clear to auscultation bilaterally Cardiovascular Rate/Rhythm: regular rate and regular rhythm Heart Sounds: no murmur Vessels: no carotid bruit Extremities: no edema Testing Laboratory Results 10/04/19 10:41 10/04/19 10:41 PT 10.4 Seconds (9.0-12.0) 10/04/19 10:41 INR 1.0 (0.9-1.1) 10/04/19 10:41 APTT 24.2 Seconds (21.0-31.0) 10/04/19 10:41 Hemoglobin A1c 7.2 % (4.5-5.6) H 10/04/19 10:41 Blood Type B Positive 10/04/19 10:41 Antibody Screen NEGATIVE 10/04/19 10:41 Electrocardiogram Date: 12/24/18 Findings: + NSR @ (76bpm) Possible anterior infarct, age undetermined. Chest X-Ray Date: 12/24/18 Findings: + NAD Echocardiogram Date: 01/05/19 EF: 60-65% Normal left ventricular size and systolic function. No regional wall motion normalities. Mild concentric LVH. Mildly dilated right ventricle with normal systolic function. Sclerotic aortic valve without significant stenosis.
[2019-10-04 11:11] LABS: Basophils # (auto) 0.02 K/uL (0-0.2); Basophils % (auto) 0.3 %; Eosinophils # (auto) 0.17 K/uL (0-0.5); Eosinophils % (auto) 2.2 %; Hematocrit (blood only) 36.6 % (37-47); Hemoglobin 12.5 g/dL (12.0-16.0); Immature Granulocytes # (auto) 0.02 K/uL (0.00-0.02); Immature Granulocytes % (auto) 0.3 %; Lymphocytes # (auto) 2.33 K/uL (1.2-3.4); Mean Corpuscular Hemoglobin 31.4 pg (25-34); Mean Corpuscular Hgb Conc 34.2 g/dL (32-36); Mean Platelet Volume 10.2 fL (7.4-10.4); Monocytes # (auto) 0.69 K/uL (0.11-0.59); Monocytes % (auto) 8.9 %; Neutrophils # (auto) 4.53 K/uL (1.4-6.5); Neutrophils % (auto) 58.3 %; Platelet Count 190 K/uL (130-400); RDW Coefficient of Variation 12.8 % (11.5-14.5); RDW Standard Deviation 43.4 fL (36.4-46.3); Red Blood Count 3.98 M/uL (4.2-5.4); White Blood Count 7.76 K/uL (4.8-10.8)
[2019-10-04 11:24] LABS: Partial Thromboplastin Ratio 0.9; Partial Thromboplastin Time 24.2 Seconds (21.0-31.0); Prothrombin Time 10.4 Seconds (9.0-12.0)
[2019-10-04 11:27] LABS: Estimated Average Glucose 160 mg/dl; Hemoglobin A1C 7.2 % (4.5-5.6)
[2019-10-04 12:55] LABS: Blood Urea Nitrogen 24 mg/dl (7-18); Calcium 9.4 mg/dl (8.5-10.1); Carbon Dioxide 26 mmol/L (21-32); Chloride 109 mmol/L (98-107); Creatinine Clr Calc Pharmacy 49.3 ml/min; Est GFR (African American) 68.2; Est GFR (Non-African American) 58.8; Glucose 130 mg/dl (70-99); Potassium 3.9 mmol/L (3.5-5.1); Sodium 139 mmol/L (136-145)
[2019-10-04 12:56] LABS: C Reactive Protein < 0.29 mg/dl (0-0.29)
--- NOTE | 2019-10-23 10:31 | History and Physical Report ---
DATE OF ADMISSION: 11/04/2019 CHIEF COMPLAINT: Left knee pain. HISTORY OF PRESENT ILLNESS: An 79-year-old female from [place] who presents for surgical treatment of her left knee. She is now about 8 months out from right knee replacement, has done well. She continues to be limited by left knee pain and discomfort. She describes global pain. The more she walks, the more it hurts. She limps more as the day goes on. She has been through extensive conservative injections and oral medicines which provided very temporary relief. She now would like to proceed with left knee replacement. PAST MEDICAL HISTORY: 1. Diabetes. 2. Hypothyroidism. 3. Hypertension. 4. Lumbar spondylosis. 5. Mild obesity, BMI 32. PAST SURGICAL HISTORY: 1. Left hip replacement done by Dr. Hollins at [place]. 2. Spine surgery. 3. Hysterectomy. 4. Cholecystectomy. 5. Tubal ligation. 6. Right knee replacement done myself 01/14/2019. ALLERGIES: None. CURRENT MEDICINES: 1. Losartan/hydrochlorothiazide once a day. 2. Synthroid 175 mcg a day. 3. Potassium. 4. Fluticasone nasal spray. 5. Singulair 10 mg. 6. Diclofenac twice a day. 7. Vicodin. 8. Coenzyme Q. 9. [place]-3. 10. Vitamin D3. 11. Magnesium. SOCIAL HISTORY: An 79-year-old female. She is . Lives by herself. Five children. FAMILY HISTORY: Significant for diabetes. REVIEW OF SYSTEMS: Significant for diabetes. Denies any chest pain or shortness of breath. No signs of DVT or PE. No known bleeding problems. PHYSICAL EXAMINATION: GENERAL: Reveals a healthy pleasant elderly female. Looks to be in pretty good health. HEENT: Benign. NECK: Supple, no lymphadenopathy. LUNGS: Clear to auscultation. HEART: Regular rate and rhythm. ABDOMEN: Soft, nontender, nondistended. EXTREMITIES: Grossly neurovascularly intact except as follows: Examination of both knees reveals patient walks independently. Examination of the left knee reveals slight varus alignment. She is tender over the medial joint line. She has got bony hypertrophy medially. Range of motion is 10-115. No instability. No pain with hip motion. Examination of the right knee reveals well-healed incision. Knee alignment looks anatomic. Range of motion is just couple degrees short of full extension to 120 degrees of flexion. Good straight leg raise. No pain with hip motion. X-RAYS: X-rays of left knee show advanced left knee DJD. She has complete loss of medial joint space. 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 ASSESSMENT: An 79-year-old female now about 8 months out from right knee replacement and left knee degenerative joint disease. She has failed conservative treatment. She would like to have her left knee fixed. PLAN: We are going to take her to the operating room and do a left total knee replacement. The risks and benefits of this procedure were discussed and include but not limited to DVT, PE, , infection, neurological injury, vascular injury, bleeding problems, persistent pain, incomplete relief of symptoms, need for further surgery in the future, need for blood transfusion, etc. The patient understands and desires to proceed. Informed consent was obtained. Last time, she was discharged to [facility] rehab. She wants to go to rehab, but not to [facility] at this time if at all possible. As far as medicines, she will stop the diclofenac 2 weeks preop.
[~2019-11-04 06:22] MED LIST changes: +BUPIVACAINE 0.5 % 5 MG/1 ML PF 10ML VIAL ONE; +EPINEPHrine INJ 1 MG/ML AMP ONE; +GABAPENTIN 300 MG CAP PO SCH; -GABAPENTIN 300 MG PO SCH; +ROPIVACAINE 0.5% 5 MG/ML 30 ML VIAL ONE; +TRANEXAMIC ACID 1,000 MG **IV Intra-op IV SCH
--- NOTE | 2019-11-04 06:58 | History & Physical Bridge Note ---
Date of Service November 04, 2019 History & Physical Bridge Note I have examined the patient, reviewed the History & Physical and in the interval since the performance of the History & Physical I have noted the following changes of clinical significance: no changes noted
[2019-11-04] MEDS ORDERED: fentaNYL citrate 100 MCG/2 ML VIAL ONE (07:09)
[2019-11-04] MEDS ORDERED: MIDAZOLAM HCL 1 MG/ML 2ML VIAL ONE ×2 (07:09→09:01)
[2019-11-04] MEDS ORDERED: BUPIVACAINE/EPINEPHRINE 0.25% 1:200,000 30 ML VIAL ONE (08:27)
[2019-11-04] MEDS ORDERED: BACITRACIN INJ 50,000 UNIT VIAL ONE (08:28)
[2019-11-04] MEDS ORDERED: SODIUM CHLORIDE 0.9% PF 50 ML VIAL ONE (08:28)
[2019-11-04] MEDS ORDERED: BUPIVACAINE LIPOSOME 1.3% 266 MG/20 ML VIAL ONE (08:28)
[2019-11-04] MEDS ORDERED: PROPOFOL IV EMULSION 10 MG/ML 20 ML VIAL IV ONE ×4 (08:54→09:38)
[2019-11-04] MEDS ORDERED: KETAMINE HCL INJ 50 MG/ML 10 ML VIAL ONE (09:01)
[2019-11-04] MEDS ORDERED: ATROPINE SULFATE 0.1 MG/ML 10ML SYR IV PRN (09:16)
[2019-11-04] MEDS ORDERED: ePHEDrine sulfate 50 MG/ML AMP IV PRN (09:16)
[2019-11-04] MEDS ORDERED: ONDANSETRON INJ 2 MG/ML 2 ML VIAL ONE (09:30)
--- NOTE | 2019-11-04 10:30 | Post Operative Brief Note ---
PG Immediate Post Op with CF Date of Surgery November 04, 2019 Pre & Post Diagnosis Operation Date: 11/04/19 08:50 Pre-Op Diagnosis: Left Knee Advanced Degenerative Joint Disease Post-Op Diagnosis: Left Knee Advanced Degenerative Joint Disease I identified the patient and participated in the time-out.: Yes Procedure Operation Date: 11/04/19 08:50 Actual Procedures p Left Total Knee Arthroplasty(Left) - Denzel Rosenthal MD Surgeon Denzel Rosenthal MD Director Digital Catalogue Lana, PAC Estimated Blood Loss 50 Findings Consistent with Post-Op Diagnosis Fluids 800 cc Specimens Specimen Description: A: Left Knee bone & Tissue Drains Small Catheter (A 16 Greek small catheter was inserted by Minda Jordan RN, without difficulty, clear yellow urine obtained, output to be monitored by Anesthesia.) Anesthesia Type Spinal MAC Complications none Disposition Accompanied Patient To Recovery: No Disposition: Recovery Room
--- NOTE | 2019-11-04 10:46 | Operative Report ---
Post Operative Report Pre & Post Diagnosis Operation Date: 11/04/19 08:50 Pre-Op Diagnosis: Left Knee Advanced Degenerative Joint Disease Post-Op Diagnosis: Left Knee Advanced Degenerative Joint Disease I identified the patient and participated in the time-out.: Yes Procedure Operation Date: 11/04/19 08:50 Actual Procedures p Left Total Knee Arthroplasty(Left) - Denzel Rosenthal MD Surgeon Denzel Rosenthal MD Plant Taxonomist Lana, PAC Estimated Blood Loss 50 Findings Consistent with Post-Op Diagnosis Operative findings revealed advanced left knee tricompartment DJD with extensive grade 4 [id number] disease in all 3 compartments. She had a fixed varus deformity to her knee. She had a flexion contracture of about 15 degrees. Osteophytes primarily in the medial compartment. Extensive evidence of previous steroid injections. Fluids 800 cc Specimens Left knee sent for pathology. Drains None. Complications none Disposition Accompanied Patient To Recovery: No Disposition: Recovery Room Indications Patient is an 79-year-old female is had a long history of bilateral knee pain discomfort. She has been through extensive conservative treatment in the past without much recent relief. She underwent a right knee replacement about 10 months ago and is done extremely well. She continued be limited by her left knee pain and DJD. She failed all conservative care and elected proceed with total knee arthroplasty. Description of Procedure Operative implants consisted of: 1. Biomet Vanguard size 62.5 left posterior stabilized femoral component. 2. Biomet Vanguard size 67 tibial tray. 3. 10 mm posterior bite polyethylene insert. 4. 31 x 8 all poly-patella. Patient was taken to the operating room identified and placed on the operating table in supine position. All contractors were properly padded. IV antibiotics were provided by anesthesia team. A spinal anesthetic and abductor canal block had been provided in the holding area. Clayton catheter was placed in sterile fashion. A left eye turn was then placed in the left lower extremities and prepped and draped in usual sterile fashion. The left leg was elevated and exsanguinated with use of an Esmarch interspace at 3 mmHg. An anterior posterior left knee was then performed the longitudinal incision centered over the patella. Sharp dissection was carried out through the subcutaneous tissue down to level the extensor mechanism. A medial parapatellar arthrotomy was then performed. We did pretty extensive posterior medial dissection due to the fixed varus deformity and the flexion contracture. The ACL was chronically absent. The PCL was released from the distal femur. The tibia subluxated anteriorly. The external tibial alignment jig was then placed in the interface the tibia and adjusted 14 mm medially. Proximal tibial cut was made to move about a millimeter bone at most from the most efficient aspect medial tibial plateau. Tibia sized to a size 67. Some osteophytes were taken off medial and posterior medially. Attention drawn the femur. New per the distal femur there was a sharp drop with intramedullary canal was suction. A left 5 degree valgus cutting guide was placed but this femoral cutting block was pinned in place but distal femoral cut was made to take an additional 5 mm of bone off the distal femur due to her flexion contracture. The femur was then sized to a 62.5. We did downsize this slightly. The AP cutting block was pinned parallel to the epicondylar axis which was 5 degrees of external rotation. The anterior cut, anterior chamfer, posterior cut, posterior chamfer cuts were then made. The box cutting guide was placed in the just slightly lateral and the box cut was made. The knee was flexed. The remnants of the medial lateral menisci were excised. The osteophytes were taken off the posterior aspect of the femur. Trial femoral component was placed but the tibial tray was pinned in maximum external rotation and the drill and stem punch were used to create defect in the proximal tip for the tibial tray. Knee was then trialed the 10 mm insert fit most appropriately. Attention drawn the patella. The patella was cleaned of all soft tissues. Patella thickness measured 22 mm in thickness was cut down to 13. Was sized to a size 31 patella. Locals were drilled for 31 patella. Lateral osteophyte is moved. Patella button was placed. Knee was taken through range of motion patella tracked nicely with no thumbs test. Attention turned to placing the permanent components. All trial components were removed. The bone plug was placed in the disc femur limit blood loss. The wound was extensively irrigated. Double batch Palacos G cement was mixed. A Biomet Vanguard size 62.5 left posterior bifemoral component, size 67 tibial tray, a 10 mm posterior bite polyethylene insert, and a 31 x 8 all poly-patella were then cemented in place. Knees brought out in full extension until cement hardened. Final cement check was then performed. Pericapsular tissues were injected with total 100 cc of combination of 20 cc of Exparel, 30 cc normal saline, 50 cc of quarter percent Marcaine with epinephrine. Patient did receive 1 g of tranexamic acid. The tourniquet was then let down for final tourniquet time 54 minutes. Hemostasis surgery was electrocautery. The wounds once again irrigated. The extensor mechanism then closed with combination 1 PDS suture #1 Vicryl suture in [id number] fashion. The extensor mechanism checked found to be intact the subcutaneous tissue then closed with 2 Dexon suture in a buried interrupted fashion skin was closed skin red. Leg was then cleaned dried a sterile dressing composed Xeroform, 4 x 4's, sterile cast padding, Zhen bandage were applied. Patient then transferred to the recovery room in stable condition. Patient tolerated the procedure well and no complications. I attest to the content of the Intraoperative Record and any orders documented therein. Any exceptions are noted below.
--- NOTE | 2019-11-04 10:54 | XRay Report ---
TWO VIEWS LEFT KNEE CLINICAL HISTORY: Postoperative examination. FINDINGS: AP and crosstable lateral portable views of the left knee are obtained. A left knee arthrop lasty is in near anatomic alignment. There has been undersurface remodeling of the patella. No acute fracture is seen. There are expected postoperative changes around the knee including skin clips, soft tissue edema, and subcutaneous gas. IMPRESSION: Expected postoperative changes status post left knee arthroplasty. No acute fracture is s een. ACT 112: Negative or not required by law. Electronically signed by: Chito Rich M.D. 11/04/2019 10:52 AM
--- NOTE | 2019-11-04 12:31 | Anesthesiology Progress Note ---
Date of Service November 04, 2019 Anesthesia Post Procedure Vital Signs Vital Signs: Temp Pulse Pulse Resp BP Pulse Ox 11/04/19 12:25 72 18 118/70 94 11/04/19 12:15 36.3 C L 73 17 137/66 96 11/04/19 12:05 74 15 109/75 96 11/04/19 11:55 36.2 C L 74 18 131/66 98 11/04/19 11:45 71 13 116/47 L 95 11/04/19 11:35 73 16 132/66 95 11/04/19 11:25 72 14 131/62 97 11/04/19 11:15 76 14 129/59 L 95 11/04/19 11:05 78 16 125/48 L 96 11/04/19 10:55 74 15 117/72 98 11/04/19 10:45 73 12 115/63 94 11/04/19 10:35 35.8 C L 85 15 130/60 98 11/04/19 06:48 36.7 C 91 H 20 151/78 H 96 Transfer of Care Handoff Completed per policy Notes Mental Status: alert / awake / arousable Patient Amnestic to Procedure: Yes Nausea / Vomiting: adequately controlled Pain: adequately controlled Airway Patency, RR, SpO2: stable & adequate BP & HR: stable & adequate Hydration State: stable & adequate Anesthetic Complications: no major complications apparent
--- NOTE | 2019-11-04 12:32 | Communication Note ---
Date of Service: November 04, 2019 Pt. had a SAB, which is receding and her sensorium is returning back to normal
[2019-11-04] MEDS ORDERED: CARBOHYDRATES FOR HYPOGLYCEMIA PO PRN (13:10)
[2019-11-04] MEDS ORDERED: NON-FORMULARY MEDICATION (Melatonin 2 TAB) PO PRN (13:10)
[2019-11-04] MEDS ORDERED: ALUMINUM/MAGNESIUM SUSP 30 ML UDC PO PRN (13:10)
[2019-11-04] MEDS ORDERED: FLUTICASONE/SALMETEROL 250/50 (ADVAIR) 14 PUFF/1 INHALER INH PRN (13:10)
[2019-11-04] MEDS ORDERED: GLUCOSE 40% GEL 15 GM TUBE PO PRN (13:10)
[2019-11-04] MEDS ORDERED: GLUCOSE 10 TABS/TUBE PO PRN (13:10)
[2019-11-04] MEDS ORDERED: DEXTROSE 50% 50 ML SYRINGE IV PRN (13:10)
[2019-11-04] MEDS ORDERED: GLUCAGON FOR INJ 1 MG VIAL SQ PRN (13:10)
[2019-11-04] MEDS ORDERED: NALOXONE HCL 0.4 MG/1 ML VIAL/CARP IV PRN (13:10)
[2019-11-04] MEDS ORDERED: HYDROmorphone INJ 0.5 MG/0.5 ML SYR IV PRN (13:30)
[2019-11-04] MEDS ORDERED: ONDANSETRON INJ 2 MG/ML 2 ML VIAL IV PRN (13:30)
[2019-11-04] MEDS ORDERED: PHARMACY GLYCEMIC MGMT CONSULT PRN (13:30)
[2019-11-04] MEDS ORDERED: MAGNESIUM HYDROXIDE SUSP 30 ML UDC PO PRN (13:30)
[2019-11-04] MEDS ORDERED: FUROSEMIDE 20 MG TAB PO PRN (13:30)
[2019-11-04] MEDS ORDERED: METOCLOPRAMIDE HCL INJ 5 MG/ML 2 ML VIAL IV PRN (13:30)
[2019-11-04] MEDS ORDERED: bisacodyL 10 MG SUPP PR PRN (13:30)
[2019-11-04] MEDS: ACETAMINOPHEN 500 MG TAB PO SCH ×2 (13:34→21:06)
[2019-11-04] MEDS: SODIUM CHLORIDE 0.9% 1000ML 1,000 ML IV SCH ×2 (13:34→22:43)
[2019-11-04] MEDS: KETOROLAC TROMETHAMINE 15 MG/ML VIAL IV SCH ×2 (13:34→20:03)
--- NOTE | 2019-11-04 14:04 | Progress Note ---
DATE: 11/04/2019 SUBJECTIVE: An 79-year-old female postop from a left knee replacement. She is doing pretty well. Just getting the feeling back in her legs. No pain yet. No chest pain or shortness of breath. Not feeling dizzy or lightheaded. OBJECTIVE: VITAL SIGNS: Temperature 36.8. Vital signs stable. GENERAL: Reveals a pleasant elderly female. She is sitting up in bed and talking to family. She is awake, alert and oriented and appearing appropriately. LUNGS: Clear to auscultation. HEART: Has regular rate and rhythm. ABDOMEN: Soft, nontender, nondistended. EXTREMITIES: Grossly neurovascularly intact except as follows: Examination of the left leg reveals the leg to be well aligned. Dressing is clean, dry and intact. She can dorsiflex and plantarflex her foot appropriately. She can do a straight leg raise. She is neurologically intact. X-RAYS: X-rays of the left knee from recovery room reviewed. It shows cemented posterior stabilized total knee arthroplasty. Components looked to be in good position. No signs of problems. ASSESSMENT: An 79-year-old female postop from a left knee replacement, doing well. Pain is controlled. She is neurologically intact. PLAN: 1. DVT prophylaxis including thigh-high TEDs, SCDs, and aspirin twice a day. 2. PT/OT. Weight bear as tolerated. Left total knee protocol. 3. Pain control, doing well with current pain regimen. We will obviously alter medicines as her spinal wears off. 4. IV antibiotics x24 hours. 5. Disposition: She is hoping to go to [facility] facility. She went to [facility] last time and had pretty poor experience. We will get long term care social worker working on that in the morning. KANDICE
[2019-11-04] MEDS ORDERED: INSULIN GLARGINE SOLOSTAR 100 UNITS/ML 3 ML PEN SC STA (14:29)
[2019-11-04] MEDS: HYDROmorphone HCL 2 MG TAB PO PRN ×3 (14:31→22:40)
--- NOTE | 2019-11-04 14:32 | Pharmacy Report ---
Glycemic Control Consultation - Date of Service November 04, 2019 - Scope Scope: Glycemic Pharmacist consulted for glycemic control and to write orders per [facility] inpatient glycemic control protocol - Objective Weight: 80.8 kg Accuchecks BSG (last 24hrs): 11/04/19 11/04/19 07:00 10:38 POC Glucose 186 H 165 H HbA1c: Hemoglobin A1c 7.2 % (4.5-5.6) H 10/04/19 10:41 - Recent Pertinent Medications Outpatient Anti-diabetic Regimen: * None * A1c = 7.2% 10/04/19 Risk Factors for Insulin Resistance: * Recent Surgery: POD 0 s/p L TKA * Diet: T2DM - Assessment & Plan Assessment & Plan: ASSESSMENT: * 79 yo F with adequately controlled T2DM for age/comorbidities on no antihyperglycemic medications as an outpatient admitted 11/04/19 for L TKA * Will base glycemic regimen this visit on regimen utilized last visit in December 2018 when patient had R TKA (no steroids were administered either visit) PLAN FOR INPATIENT GLYCEMIC CONTROL: * Basal insulin: Lantus 15 units SQ x1 now then qAM based on BSG: * 10 units for BSG less than 110 mg/dL * 15 units for BSG 110-140 mg/dL * 20 units for BSG greater than 140 mg/dL * Bolus insulin * NovoLog per scale ACHS or Q6hrs while NPO * Goal Range: Low 110 mg/dL - High 140 mg/dL * Correction Factor: 40 mg/dL/unit * Nutritional / Prandial insulin per carb ratio of 1 unit per 13 grams CHO consumed * Please note that the plan above was derived based on current level of insulin resistance and hospital stress. These recommendations are appropriate for inpatient admission only. Plan of care upon discharge will need to be reassessed to avoid potential outpatient hypo/hyperglycemia. Thank you.
[2019-11-04] MEDS: CEFAZOLIN 2000MG 2,000 MG/15 ML SYR IV SCH (16:28)
[2019-11-04] MEDS ORDERED: TRANEXAMIC ACID / 0.7% NACL 1,000 MG/100 ML BAG IV SCH (16:30)
[2019-11-04] MEDS: INSULIN ASPART 100 UNITS/ML 3 ML PEN SC SCH ×2 (18:06→21:05)
[2019-11-04] MEDS: FERROUS GLUCONATE 324 MG TAB PO SCH (18:07)
[2019-11-04] MEDS: ASCORBIC ACID 500 MG TAB PO SCH (18:07)
[2019-11-04] MEDS ORDERED: NON-FORMULARY MEDICATION (Coq10 (Ubiquinol) 200 MG) PO SCH (21:00)
[2019-11-04] MEDS: ASPIRIN 81 MG ECTAB PO SCH (21:06)
[2019-11-04] MEDS: DOCUSATE SODIUM 100 MG CAP PO SCH (21:06)
[2019-11-04] MEDS: OMEGA-3 (PURIFIED FISH OIL) 1 GM CAP PO SCH (21:06)
[2019-11-04] MEDS: TAPENTADOL HCL ER 50 MG TABCR PO SCH (21:06)
[2019-11-04] MEDS: SENNA 8.6 MG TAB PO SCH (21:06)
[2019-11-05] MEDS: CEFAZOLIN 2000MG 2,000 MG/15 ML SYR IV SCH (00:17)
[2019-11-05] MEDS: KETOROLAC TROMETHAMINE 15 MG/ML VIAL IV SCH ×5 (02:04→21:30)
[2019-11-05] MEDS: ACETAMINOPHEN 500 MG TAB PO SCH ×4 (05:57→21:11)
[2019-11-05] MEDS: LEVOTHYROXINE SODIUM 137 MCG TABLET PO SCH (05:57)
[2019-11-05 06:05] LABS: Hematocrit (blood only) 30.4 % (37-47); Hemoglobin 10.3 g/dL (12.0-16.0); Mean Corpuscular Hemoglobin 31.2 pg (25-34); Mean Corpuscular Hgb Conc 33.9 g/dL (32-36); Mean Corpuscular Volume 92.1 fL (80-100); Mean Platelet Volume 9.7 fL (7.4-10.4); Platelet Count 172 K/uL (130-400); RDW Standard Deviation 43.9 fL (36.4-46.3); White Blood Count 6.09 K/uL (4.8-10.8)
[2019-11-05 06:38] LABS: BUN Creatinine Ratio 18.3 (10-20); Creatinine Clr Calc Pharmacy 41.8 ml/min; Est GFR (African American) 56.1; Est GFR (Non-African American) 48.4; Potassium 3.5 mmol/L (3.5-5.1)
--- NOTE | 2019-11-05 08:35 | Progress Note ---
DATE: 11/05/2019 SUBJECTIVE: An 79-year-old female postop day 1 from a left knee replacement. She is doing pretty well. Having a little bit of itching and that is really it. Pain is controlled. No chest pain or shortness of breath. Not feeling dizzy or lightheaded. OBJECTIVE: VITAL SIGNS: Temperature 36.5. Vital signs stable. GENERAL: Physical examination shows a pleasant elderly female. She is sitting up in bed and looks comfortable. EXTREMITIES: Examination of the left leg reveals the dressing to be clean, dry and intact. She can dorsiflex and plantarflex her foot appropriately. She is neurologically intact. LABORATORY DATA: Hemoglobin 10.3, hematocrit 30.4. Electrolytes are stable. ASSESSMENT: An 79-year-old female diabetic postop day 1 from a left knee replacement, doing well. Pain is controlled. Having a little bit of itchiness likely related to the pain medicines. PLAN: 1. DVT prophylaxis including thigh-high TEDs, SCDs, and aspirin twice a day. 2. PT/OT. Weight bear as tolerated. Left total knee protocol. 3. Pain control, doing pretty well with current pain regimen. 4. Itching. We will give her some Benadryl. 5. Anemia. She is asymptomatic. Will continue iron supplementation. 6. Disposition. She is hoping to be discharged to [facility] for rehabilitation visit. I have social media marketer working on this.
[2019-11-05] MEDS: TAPENTADOL HCL ER 50 MG TABCR PO SCH ×2 (08:46→21:11)
[2019-11-05] MEDS: CETIRIZINE HCL 10 MG TABLET PO SCH (08:49)
[2019-11-05] MEDS: ASCORBIC ACID 500 MG TAB PO SCH ×2 (08:49→18:11)
[2019-11-05] MEDS: CHOLECALCIFEROL 1,000 UNITS TAB PO SCH (08:49)
[2019-11-05] MEDS: MULTIVITAMIN TAB PO SCH (08:50)
[2019-11-05] MEDS: OMEGA-3 (PURIFIED FISH OIL) 1 GM CAP PO SCH ×2 (08:50→21:04)
[2019-11-05] MEDS: MONTELUKAST SODIUM 10 MG TABLET PO SCH (08:50)
[2019-11-05] MEDS: VITAMIN B COMPLEX TAB PO SCH (08:50)
[2019-11-05] MEDS: hydroCHLOROthiazide 25 MG TAB PO SCH (08:50)
[2019-11-05] MEDS: FERROUS GLUCONATE 324 MG TAB PO SCH ×2 (08:51→18:11)
[2019-11-05] MEDS: ASPIRIN 81 MG ECTAB PO SCH ×2 (08:51→21:04)
[2019-11-05] MEDS: LOSARTAN POTASSIUM 50 MG TAB PO SCH (08:51)
[2019-11-05] MEDS: POTASSIUM CHLORIDE 20 MEQ TABCR PO SCH (08:51)
[2019-11-05] MEDS: FLUTICASONE PROPIONATE NA SPR 16 GM BTL SCH (08:52)
[2019-11-05] MEDS: DOCUSATE SODIUM 100 MG CAP PO SCH ×2 (08:54→21:04)
[2019-11-05] MEDS: INSULIN GLARGINE SOLOSTAR 100 UNITS/ML 3 ML PEN SC SCH (08:55)
[2019-11-05] MEDS: INSULIN ASPART 100 UNITS/ML 3 ML PEN SC SCH ×4 (08:56→21:09)
[2019-11-05] MEDS ORDERED: Nursing to Pharmacy Communication ONE (08:59)
[2019-11-05] MEDS ORDERED: MULTIVITAMIN TAB PO SCH (09:00)
[2019-11-05] MEDS ORDERED: [UNRECOGNIZED DRUG - REMARK] PO SCH (09:00)
[2019-11-05] MEDS ORDERED: GINGER TEA PO SCH (09:00)
[2019-11-05] MEDS: HYDROmorphone HCL 2 MG TAB PO PRN ×2 (10:49→15:36)
[2019-11-05] MEDS: SENNA 8.6 MG TAB PO SCH (21:05)
[2019-11-06] MEDS: KETOROLAC TROMETHAMINE 15 MG/ML VIAL IV SCH ×2 (01:19→08:49)
[2019-11-06] MEDS: ACETAMINOPHEN 500 MG TAB PO SCH ×3 (05:45→21:47)
[2019-11-06] MEDS: LEVOTHYROXINE SODIUM 137 MCG TABLET PO SCH (06:29)
--- NOTE | 2019-11-06 08:44 | Progress Note ---
DATE: 11/06/2019 SUBJECTIVE: An 79-year-old female postop day 2 from a left knee replacement. She is doing pretty well. Pain has been reasonably well controlled. No chest pain or shortness of breath. Not feeling dizzy or lightheaded. OBJECTIVE: VITAL SIGNS: Temperature 36.8. Vital signs stable. GENERAL: Shows a pleasant elderly female. I did wake her this morning. She is lying in bed, looks pretty comfortable. EXTREMITIES: Examination of the left leg reveals the leg to be well aligned. Dressing is clean, dry and intact. Calf is soft and supple. She is neurologically intact. ASSESSMENT: An 79-year-old female postop day 2 from left knee replacement, doing well. Pain is controlled. She is neurologically intact. PLAN: 1. DVT prophylaxis including thigh-high TEDs, SCDs, and aspirin twice a day. 2. PT/OT. Weight bear as tolerated. Left total knee protocol. 3. Pain control, doing well with current pain regimen. 4. Disposition: She is hoping to go to [facility] for rehab. She has required a 3 night hospital stay and will hopefully get her there on Thursday.
[2019-11-06] MEDS: INSULIN GLARGINE SOLOSTAR 100 UNITS/ML 3 ML PEN SC SCH (08:45)
[2019-11-06] MEDS: INSULIN ASPART 100 UNITS/ML 3 ML PEN SC SCH ×4 (08:45→20:35)
[2019-11-06] MEDS: CHOLECALCIFEROL 1,000 UNITS TAB PO SCH (08:46)
[2019-11-06] MEDS: HYDROmorphone HCL 2 MG TAB PO PRN (08:46)
[2019-11-06] MEDS: DOCUSATE SODIUM 100 MG CAP PO SCH ×2 (08:47→21:47)
[2019-11-06] MEDS: OMEGA-3 (PURIFIED FISH OIL) 1 GM CAP PO SCH ×2 (08:47→21:47)
[2019-11-06] MEDS: FERROUS GLUCONATE 324 MG TAB PO SCH ×2 (08:47→17:05)
[2019-11-06] MEDS: CETIRIZINE HCL 10 MG TABLET PO SCH (08:47)
[2019-11-06] MEDS: ASCORBIC ACID 500 MG TAB PO SCH ×2 (08:47→17:05)
[2019-11-06] MEDS: MONTELUKAST SODIUM 10 MG TABLET PO SCH (08:47)
[2019-11-06] MEDS: POTASSIUM CHLORIDE 20 MEQ TABCR PO SCH (08:48)
[2019-11-06] MEDS: hydroCHLOROthiazide 25 MG TAB PO SCH (08:48)
[2019-11-06] MEDS: TAPENTADOL HCL ER 50 MG TABCR PO SCH ×2 (08:48→21:48)
[2019-11-06] MEDS: VITAMIN B COMPLEX TAB PO SCH (08:48)
[2019-11-06] MEDS: LOSARTAN POTASSIUM 50 MG TAB PO SCH (08:48)
[2019-11-06] MEDS: ASPIRIN 81 MG ECTAB PO SCH ×2 (08:48→21:46)
[2019-11-06] MEDS: FLUTICASONE PROPIONATE NA SPR 16 GM BTL SCH (08:49)
[2019-11-06] MEDS: MULTIVITAMIN TAB PO SCH (08:49)
--- NOTE | 2019-11-06 10:10 | Pharmacy Report ---
Pharmacy Glycemic Short Note 2 - Date of Service November 06, 2019 - Glycemic Short BSG Results (Last 24 hours): 11/05/19 11/05/19 11/05/19 11:58 17:15 20:28 POC Glucose 134 H 160 H 98 11/06/19 08:03 POC Glucose 136 H OUTPATIENT ANTIDIABETIC REGIMEN: * N/A - diet controlled ASSESSMENT: * 79 yo F with adequately controlled T2DM for age/comorbidities on no antihyperglycemic medications as an outpatient admitted 11/04/19 for L TKA * 11/04/19: POD#0 initiated SQ basal bolus insulin regimen similar to last visit in December 2018 when patient had R TKA (no steroids were administered either visit) * 11/05/19: BSGs well controlled ranging 98 - 160 mg/dl * 15 units of basal insulin {Lantus} * 15 units of bolus insulin {NovoLog} * 11/06/19: AM fasting trending downwards slightly 186 --> 157 --> 16 mg/dl tod ay. Last admission pt required slight dose reduction on day # 3. Will continue with current bolus insulin parameters but lower basal slightly. Change from 10-20 units based on BSG to 5-15 units based on BSG). PLAN FOR INPATIENT GLYCEMIC CONTROL: * Basal insulin: decrease dosing by 5 units * 5 units for BSG less than 110 mg/dL * 10 units for BSG 110-140 mg/dL * 15 units for BSG greater than 140 mg/dL * Bolus insulin: no change * NovoLog per scale ACHS or Q6hrs while NPO * Goal Range: Low 110 mg/dL - High 140 mg/dL * Correction Factor: 40 mg/dL/unit * Nutritional / Prandial insulin per carb ratio of 1 unit per 13 grams CHO consumed PLAN FOR DISCHARGE: * A1c = 7.2% on 10/04/19 * HbA1c of 6.5% or greater indicates "diagnosis of diabetes" --> ADA recommendation is to "Treat Diabetes" * Recommend initiating metformin per ADA standards of care * Metformin XR 500mg PO daily with evening meal. Continue to titrate metformi n dosing upwards as recommended. Dosage increases should be made in increments of 500 mg weekly, up to 2,000 mg/day PO, given in divided doses. Doses above 2000 mg/day may be better tolerated if divided and given 3 times per day with meals. Max: 2,550 mg/day PO, in divided doses
[2019-11-06] MEDS: SENNA 8.6 MG TAB PO SCH (21:47)
[2019-11-07] MEDS: ACETAMINOPHEN 500 MG TAB PO SCH ×2 (05:11→13:03)
[2019-11-07] MEDS: LEVOTHYROXINE SODIUM 137 MCG TABLET PO SCH (06:24)
--- NOTE | 2019-11-07 07:38 | Progress Note ---
DATE: 11/07/2019 SUBJECTIVE: An 79-year-old white female postop day 3 from a left knee replacement. She is doing pretty well. Pain is controlled on her current pain medicines. No chest pain or shortness of breath. Not feeling dizzy or lightheaded. She is hoping to go to rehab today. OBJECTIVE: VITAL SIGNS: Temperature is 37.2. Vital signs stable. GENERAL: Physical examination shows a pleasant elderly female. She is lying in bed, looks pretty comfortable. EXTREMITIES: Examination of the left leg reveals the leg to be well aligned. Dressing is clean, dry and intact. Calf is soft and supple. She is neurologically intact. ASSESSMENT: An 79-year-old white female postoperative day 3 from a left knee replacement, doing pretty well. Pain is reasonably well controlled. We are just waiting for placement. PLAN: 1. DVT prophylaxis including thigh-high TEDs, SCDs, and aspirin twice a day. 2. PT/OT. Weight bear as tolerated. Left total knee protocol. 3. Pain control, doing well with current pain regimen. 4. Disposition: Plan to discharge to rehab once approved. We are waiting approval.
[2019-11-07] MEDS: FERROUS GLUCONATE 324 MG TAB PO SCH (08:18)
[2019-11-07] MEDS: ASCORBIC ACID 500 MG TAB PO SCH (08:19)
[2019-11-07] MEDS: DOCUSATE SODIUM 100 MG CAP PO SCH (08:21)
[2019-11-07] MEDS: hydroCHLOROthiazide 25 MG TAB PO SCH (08:21)
[2019-11-07] MEDS: LOSARTAN POTASSIUM 50 MG TAB PO SCH (08:21)
[2019-11-07] MEDS: MULTIVITAMIN TAB PO SCH (08:21)
[2019-11-07] MEDS: CHOLECALCIFEROL 1,000 UNITS TAB PO SCH (08:21)
[2019-11-07] MEDS: ASPIRIN 81 MG ECTAB PO SCH (08:22)
[2019-11-07] MEDS: FLUTICASONE PROPIONATE NA SPR 16 GM BTL SCH (08:22)
[2019-11-07] MEDS: VITAMIN B COMPLEX TAB PO SCH (08:23)
[2019-11-07] MEDS: OMEGA-3 (PURIFIED FISH OIL) 1 GM CAP PO SCH (08:23)
[2019-11-07] MEDS: CETIRIZINE HCL 10 MG TABLET PO SCH (08:23)
[2019-11-07] MEDS: MONTELUKAST SODIUM 10 MG TABLET PO SCH (08:23)
[2019-11-07] MEDS: POTASSIUM CHLORIDE 20 MEQ TABCR PO SCH (08:23)
[2019-11-07] MEDS: TAPENTADOL HCL ER 50 MG TABCR PO SCH (08:28)
[2019-11-07] MEDS: INSULIN ASPART 100 UNITS/ML 3 ML PEN SC SCH ×2 (08:36→12:55)
[2019-11-07] MEDS: INSULIN GLARGINE SOLOSTAR 100 UNITS/ML 3 ML PEN SC SCH (08:37)
[2019-11-07] MEDS: HYDROmorphone HCL 2 MG TAB PO PRN (13:02)
--- NOTE | 2019-11-11 16:23 | Discharge Summary ---
ADMITTING PHYSICIAN AND SURGEON: Dr. Denzel Rosenthal. ADMITTING DIAGNOSIS: Left knee degenerative joint disease. SURGERY PERFORMED: Left total knee arthroplasty. SECONDARY DIAGNOSES: Diabetes, hypothyroidism, hypertension, lumbar spondylosis, mild obesity. CONSULTS: None obtained. HISTORY AND PHYSICAL EXAMINATION: Well documented in the patient's chart. HOSPITAL COURSE: The patient was admitted on 11/04/2019 underwent total knee arthroplasty, tolerated the procedure well. There were no complications. She was transferred to the PACU postoperatively and later to the orthopedic floor for further care. She was given Ancef for antibiotic prophylaxis, CHUCKY stockings, SCDs and aspirin for DVT prophylaxis. Hemoglobin, hematocrit and vital signs were monitored during her hospital stay and remained stable. She did not require any blood transfusions. There were no complications. By postoperative day 3, she was tolerating a diabetic diet. Pain was controlled with oral pain medicine. She was participating in physical therapy. Postop day 3, [facility] She was given printed discharge instructions as well as prescriptions for extra strength Tylenol, aspirin and hydromorphone. Continue her home medications, continue physical therapy, weightbearing as tolerated, CHUCKY stockings. Follow up approximately 2 weeks postop or sooner if there are any problems or concerns.
== END 2019-11-07 14:24 | DRG 470 ==
LOC: ASU 06:22 → 3E 10:37